=== PATIENT | female | born 2000 | race Caucasian/White ===

== ENCOUNTER 2023-03-11 12:46 | Emergency (ER) | payer BC, SELFPAY ==
[2023-03-11 12:56] VITALS: PULSE 82; RESP 18; TEMP 36.8; O2SAT 98; BMI 21.8
[2023-03-11 13:16] VITALS: BP 146/82
[2023-03-11 13:16] LABS: Bilirubin Urine NEGATIVE (NEGATIVE); Blood Urine NEGATIVE (NEGATIVE); Clarity Urine CLEAR (CLEAR); Color Urine LT. YELLOW (YELLOW); Glucose Urine UA NEGATIVE (NEGATIVE); Ketones Urine TRACE mg/dL (NEGATIVE); Leukocyte Esterase Urine NEGATIVE (NEGATIVE); Nitrite Urine NEGATIVE (NEGATIVE); Protein Urine NEGATIVE (NEG/TRACE); Specific Gravity Urine <=1.005 (1.005-1.025); Urobilinogen Urine 0.2 EU/dL (0.2-1.0)
[2023-03-11 13:20] LABS: Urine Microscopic Indicated NO
--- NOTE | 2023-03-11 13:32 | ED_ITS ---
HPI - Abdominal Pain General Chief Complaint: Abdominal Pain Time Seen by Provider: 03/11/23 13:30 Source: patient and family Mode of arrival: walk-in Limitations: no limitations History of Present Illness HPI narrative: patient was sitting at work yesterday she had onset of left-sided abdominal pain. She has very few other symptoms. She specifically denies nausea vomiting fever diarrhea constipation. She had normal bowel movements. She has not had any previous surgery. She is not sexually active. She has not had a [employer] exam. She does not have any back or flank pain. No history of kidney stones or any urinary symptoms whatsoever. Mother thought that she might have an ovarian cyst. She last had a menstrual period two weeks ago. Related Data Home Medications Medication Instructions Recorded Confirmed No Known Home Medications 03/11/23 03/11/23 Allergies Allergy/AdvReac Type Severity Reaction Status Date / Time No Known Drug Allergies Allergy Verified 03/11/23 12:59 Exam Narrative Exam Narrative: very pleasant smiling does not appear to be in undue discomfort. Problem focused examination to the abdomen as noted below Constitutional Vital Signs - 24 hr 03/11/23 12:56 03/11/23 13:16 Temperature 98.2 F Pulse Rate [Monitor] 82 Respiratory Rate 18 Blood Pressure [Right Arm] 146/82 H Pulse Oximetry 98 Oxygen Delivery Method Room Air Respiratory Common normals: normal respiratory effort, no retractions and no use of accessory muscles GI Common normals: Normal to inspection, nondistended, normoactive bowel sounds present, soft to palpation, non-tender, no hepatosplenomegaly and no masses Inspection: normal to inspection; no abdominal wall ecchymosis and no localized swelling Palpation: soft Rectal Exam - Female: deferred Other: told benign abdominal findings with negative tenderness at McBurney's point. Morales sign is negative. She had no guarding rebound rigidity or peritoneal findings to examination the left abdomen Course Vital Signs Vital signs: Vital Signs Temperature 98.2 F 03/11/23 12:56 Pulse Rate 82 03/11/23 12:56 Respiratory Rate 18 03/11/23 12:56 Pulse Oximetry 98 03/11/23 12:56 Oxygen Delivery Method Room Air 03/11/23 12:56 Temperature 98.2 F 03/11/23 12:56 Pulse Rate 82 03/11/23 12:56 Respiratory Rate 18 03/11/23 12:56 Blood Pressure 146/82 H 03/11/23 13:16 Pulse Oximetry 98 03/11/23 12:56 Oxygen Delivery Method Room Air 03/11/23 12:56 MDM - Abdominal Pain MDM Narrative Medical decision making narrative: patient has a benign clinical history and physical examination. I do not believe she needs laboratory testing or imaging at this time. She and her mother are both very responsive and can follow-up with her seismograph computer who is working with me in the Emergency Room today. I will show that information with her [employer] practitioner. Should she develop worse pain vomiting fever she should return to emergency room immediately. In the meantime [id number] NSAIDs were advised. Incidentally there is no history of polycystic ovarian disease in the mother's family Lab Data Labs: Lab Results 03/11/23 Range/Units 13:00 Urine Color Lt. yellow (YELLOW) Urine Clarity Clear (CLEAR) Urine pH 6.0 (5.0-9.0) Ur Specific [place] <=1.005 A (1.005-1.025) Urine Protein Negative (NEG/TRACE) mg/dL Urine Glucose (UA) Negative (NEGATIVE) mg/dL Urine Ketones Trace A (NEGATIVE) mg/dL Urine Occult Blood Negative (NEGATIVE) Urine Nitrite Negative (NEGATIVE) Urine Bilirubin Negative (NEGATIVE) Urine Urobilinogen 0.2 (0.2-1.0) EU/dL Ur Leukocyte Esterase Negative (NEGATIVE) Discharge Plan Discharge Chief Complaint: Abdominal Pain Prescriptions / Home Meds: No Action No Known Home Medications Referrals: SUZETTE REYES [Primary Care Provider] - 1 week
[2023-03-11 13:53] LABS: HCG Qualitative Urine* NEGATIVE (NEGATIVE)
[2023-03-11 14:03] VITALS: BP 121/88; PULSE 68; RESP 14; O2SAT 98
== END 2023-03-11 14:06 | disposition home or self-care (01) ==
PROVIDERS: Emergency Provider Emergency Medicine Emergency Medical Services; PCP Family Medicine
DX: R10.9 Unspecified abdominal pain (principal)
CPT/HCPCS: 81003; 84703; 99283